=== PATIENT | female | born 1990 | race Caucasian/White ===

== ENCOUNTER 2021-10-18 22:20 | Inpatient (IN) | payer BC ==
--- NOTE | 2021-10-19 01:10 | PCM.PREANE ---
Preanesthetic Assessment - Procedure Proposed Procedure: Epidural - Anesthesia/Transfusion/Family Hx Anesthesia History: Prior Anesthesia Without Reaction Family History of Anesthesia Reaction: No Transfusion History: No Prior Transfusion(s) Intubation History: Unknown - Review of Systems General: No Symptoms Pulmonary: No Symptoms Cardiovascular: No Symptoms Gastrointestinal: No Symptoms (GERD), Constipation Neurological: No Symptoms Other: Reports: None, Diabetes (Gestational DM) - Physical Assessment NPO Status Date: 10/18/21 NPO Status Time: 13:00 Vital Signs: Last Vital Signs Temp 36.8 C 10/18/21 22:45 Pulse 81 10/18/21 22:45 Resp 14 10/18/21 22:45 BP 141/75 H 10/18/21 22:45 Pulse Ox 100 10/18/21 22:45 Height: 1.6 m Weight: 110.223 kg ASA Class: 2 Mental Status: Alert & Oriented x3 Airway Class: Mallampati = 2 Dentition: Reports: Normal Dentition (nasal piercing noted), Caries Thyro-Mental Finger Breadths: 3 Mouth Opening Finger Breadths: 3 ROM/Head Extension: Full Lungs: Clear to Auscultation, Normal Respiratory Effort Cardiovascular: Regular Rate, Regular Rhythm, No Murmurs - Allergies Allergies/Adverse Reactions: Allergies Allergy/AdvReac Type Severity Reaction Status Date / Time bupropion [From Wellbutrin] Allergy Hives Verified 10/19/21 00:39 - Anesthesia Plan Pre-Op Medication Ordered: None - Acknowledgements Anesthesia Type Planned: Epidural Pt an Appropriate Candidate for the Planned Anesthesia: Yes Alternatives and Risks of Anesthesia Discussed w Pt/Guardian: Yes Pt/Guardian Understands and Agrees with Anesthesia Plan: Yes
[2021-10-19] MEDS ORDERED: ePHEDrine 50 MG/ML SDV IVPUSH PRN (01:13)
[2021-10-19] MEDS ORDERED: Ondansetron 4 MG/2 ML SDV IVPUSH PRN (01:13)
[2021-10-19] MEDS ORDERED: fentaNYL 100 MCG/2 ML SDV EPIDUR PRN (01:13)
[2021-10-19] MEDS ORDERED: Bupivacaine/fentaNYL/NS 100 ML Bag EPIDUR SCH (01:15)
[2021-10-19] MEDS ORDERED: Sodium Chloride 0.9% 10 ML Syringe FLUSH PRN (01:24)
[2021-10-19] MEDS ORDERED: Lidocaine 1% 50 ML MDV INJECT ONE (01:24)
[2021-10-19] MEDS ORDERED: Nalbuphine 10 MG/1 ML Vial IVPUSH PRN (01:24)
[2021-10-19] MEDS ORDERED: Oxytocin/Lactated Ringers 10 UNIT/1,000 ML BAG IV SCH (01:30)
[2021-10-19] MEDS: Lactated Ringers 1,000 ML IV SCH ×2 (05:04→06:03)
--- NOTE | 2021-10-19 06:33 | PCM.LDHP ---
L&D History of Present Illness - General Date of Service: 10/19/21 Admit Problem/Dx: Patient Status Order with Admit Dx/Problem 10/18/21 22:26 Patient Status [ADT] Routine 10/19/21 01:25 Patient Status [ADT] Routine Admission Diagnosis/Problem Admission Diagnosis/Problem Source of Information: Patient History Limitations: Reports: No Limitations - History of Present Illness Introduction:: Patient is a 31 y/o at 39 3/7 wks currently who presented last night in early labor. Has progressed from 3 cm to 6 cm. Currently comfortable with an epidural in place. Pain Score: 10 - Related Data Allergies/Adverse Reactions: Allergies Allergy/AdvReac Type Severity Reaction Status Date / Time avocado Allergy Nausea and Verified 10/19/21 02:43 Vomiting banana Allergy Nausea and Verified 10/19/21 02:43 Vomiting bupropion [From Wellbutrin] Allergy Hives Verified 10/19/21 00:39 Home Medications: Home Meds Pnv No.95/Ferrous Fum/Folic AC [ Vitamin Tablet] 1 tab PO DAILY 10/19/21 [History] Past Medical History [facility]IC[facility] History: Reports: , Spontaneous : 4 Para: 2 LMP (Approximate): - Past Surgical History HEENT Surgical History: Reports: Oral Surgery, Tonsillectomy Social & Family History - Family History Family Medical History: Unobtainable - Tobacco Use Tobacco Use Status *Q: Never Tobacco User - Caffeine Use Caffeine Use: Reports: None - Alcohol Use Alcohol Use History: No - Recreational Drug Use Recreational Drug Use: No H&P Review of Systems - Review of Systems: Review Of Systems: See Below General: Reports: No Symptoms Pulmonary: Reports: No Symptoms Cardiovascular: Reports: No Symptoms Gastrointestinal: Reports: No Symptoms Genitourinary: Reports: No Symptoms Musculoskeletal: Reports: No Symptoms Psychiatric: Reports: No Symptoms L&D Exam - Exam Exam: See Below - Vital Signs Vital Signs: Last Vital Signs Temp 36.8 C 10/19/21 02:35 Pulse 81 10/19/21 02:35 Resp 16 10/19/21 02:35 BP 141/75 H 10/19/21 02:35 Pulse Ox 98 10/19/21 02:35 Weight: 110.223 kg - OB Specific Contraction Intensity: Moderate to Strong Movement: Active Heart Tones: Present Heart Tones per Min: 150 Heart Rate (FHR) Variability: Moderate (6-25 bpm) Presentation: Vertex - Duncan Score Duncan Score Cervix Position: Midposition Duncan Score Consistency: Soft Duncan Score Effacement: >80% Duncan Score Dilation: > 5 cm Duncan Score Infant's Station: -1 ,0 Duncan Score Total: 11 - Exam General: Alert, Oriented, Cooperative Lungs: Clear to Auscultation, Normal Respiratory Effort Cardiovascular: Regular Rate, Regular Rhythm GI/Abdominal Exam: Soft, Non-Tender Genitourinary: Normal external exam Extremities: Normal Inspection Skin: Warm, Dry, Intact - Patient Data Lab Results Last 24 hrs: Laboratory Results - last 24 hr 10/19/21 10/19/21 10/19/21 Range/Units 01:28 01:52 01:52 WBC 12.78 H (3.98-10.04) K/mm3 RBC 4.37 (3.98-5.22) M/mm3 Hgb 13.2 (11.2-15.7) gm/dl Hct 39.3 (34.1-44.9) % MCV 89.9 (79.4-94.8) fl MCH 30.2 (25.6-32.2) pg MCHC 33.6 (32.2-35.5) g/dl RDW Std Deviation 44.5 (36.4-46.3) fL Plt Count 234 (182-369) K/mm3 MPV 9.5 (9.4-12.3) fl Neut % (Auto) 69.8 (34.0-71.1) % Lymph % (Auto) 21.0 (19.3-51.7) % Moore % (Auto) 7.3 (4.7-12.5) % Eos % (Auto) 1.1 (0.7-5.8) Baso % (Auto) 0.2 (0.1-1.2) % Neut # (Auto) 8.92 H (1.56-6.13) K/mm3 Lymph # (Auto) 2.68 (1.18-3.74) K/mm3 Moore # (Auto) 0.93 H (0.24-0.36) K/mm3 Eos # (Auto) 0.14 (0.04-0.36) K/mm3 Baso # (Auto) 0.03 (0.01-0.08) K/mm3 POC Glucose (70-99) mg/dL SARS-CoV-2 RNA (MARIA EUGENIA) Negative (NEGATIVE) Blood Type O POSITIVE Gel Antibody Screen Negative 10/19/21 10/19/21 Range/Units 02:07 04:04 WBC (3.98-10.04) K/mm3 RBC (3.98-5.22) M/mm3 Hgb (11.2-15.7) gm/dl Hct (34.1-44.9) % MCV (79.4-94.8) fl MCH (25.6-32.2) pg MCHC (32.2-35.5) g/dl RDW Std Deviation (36.4-46.3) fL Plt Count (182-369) K/mm3 MPV (9.4-12.3) fl Neut % (Auto) (34.0-71.1) % Lymph % (Auto) (19.3-51.7) % Moore % (Auto) (4.7-12.5) % Eos % (Auto) (0.7-5.8) Baso % (Auto) (0.1-1.2) % Neut # (Auto) (1.56-6.13) K/mm3 Lymph # (Auto) (1.18-3.74) K/mm3 Moore # (Auto) (0.24-0.36) K/mm3 Eos # (Auto) (0.04-0.36) K/mm3 Baso # (Auto) (0.01-0.08) K/mm3 POC Glucose 90 137 H (70-99) mg/dL SARS-CoV-2 RNA (MARIA EUGENIA) (NEGATIVE) Blood Type Gel Antibody Screen Result Diagrams: 10/19/21 01:52 - Problem List (1) 39 weeks gestation of SNOMED Code(s): 99421521 ICD Code: Z3A.39 - 39 WEEKS GESTATION OF Status: Acute Current Visit: Yes (2) Gestational diabetes SNOMED Code(s): 79163125 ICD Code: O24.419 - GESTATIONAL DIABETES MELLITUS IN , UNSP CONTROL Status: Acute Current Visit: Yes Qualifiers: Gestational diabetes mellitus control: diet-controlled Trimester: third tr imester Qualified Code(s): O24.410 - Gestational diabetes mellitus in pre gnancy, diet controlled (3) Normal labor SNOMED Code(s): 95003774 ICD Code: O80 - ENCOUNTER FOR FULL-TERM UNCOMPLICATED DELIVERY; Z37.9 - OUTCOME OF DELIVERY, UNSPECIFIED Status: Acute Current Visit: Yes Problem List Initiated/Reviewed/Updated: Yes Orders Last 24hrs: Active Orders 24 hr Category Date Time Status Patient Status [ADT] Routine ADT 10/18/21 22:26 Active Patient Status [ADT] Routine ADT 10/19/21 01:25 Active Activity as Tolerated [RC] PFP Care 10/19/21 01:24 Active Blood Glucose Check, Bedside [RC] Q2HR Care 10/19/21 01:33 Active Communication Order [RC] ASDIRECTED Care 10/19/21 01:24 Active Heart Tones [RC] ASDIRECTED Care 10/19/21 01:25 Active Non Stress Test [RC] PER UNIT ROUTINE Care 10/18/21 22:26 Active Non Stress Test [RC] PER UNIT ROUTINE Care 10/19/21 01:24 Active Notify Provider [RC] ASDIRECTED Care 10/19/21 01:13 Active Notify Provider [RC] PFP Care 10/19/21 01:24 Active Notify Provider [RC] PRN Care 10/19/21 01:24 Active Oxygen Therapy [RC] ASDIRECTED Care 10/19/21 01:13 Active Peripheral IV Care [RC] Q4HR Care 10/19/21 01:25 Active Pulse Oximetry [RC] ASDIRECTED Care 10/19/21 01:13 Active Vital Signs [RC] PER UNIT ROUTINE Care 10/18/21 22:26 Active Vital Signs [RC] PER UNIT ROUTINE Care 10/19/21 01:24 Active Regular Diet [DIET] Diet 10/18/21 Breakfast Active PATIENT RETYPE [BBK] Routine Lab 10/19/21 02:52 Ordered RAPID PLASMA REAGIN,RPR [CHEM] Routine Lab 10/19/21 01:52 Received Bupivacaine/fentaNYL/NS [fentaNYL/Bupivacaine/NS 2 MCG- Med 10/19/21 01:15 Active 0.125% 100 ML] 100 ml EPIDUR ASDIRECTED Lactated Ringers [Ringers, Lactated] 1,000 ml Med 10/19/21 01:30 Active IV ASDIRECTED Nalbuphine [Nubain] Med 10/19/21 01:24 Active 10 mg IVPUSH Q2H PRN Ondansetron [Zofran] Med 10/19/21 01:13 Active 4 mg IVPUSH ONETIME PRN Oxytocin/Lactated Ringers [Pitocin in LR 10 Units/1,000 Med 10/19/21 01:30 Active ML] 10 unit in 1,000 ml IV .CONTINUOUS Phenylephrine HCl In 0.9% NaCl [Phenylephrine 1 MG/10 Med 10/19/21 01:13 Active ML-NS] 0.1 mg IVPUSH Q10M PRN Sodium Chloride 0.9% [Saline Flush] Med 10/19/21 01:24 Active 10 ml FLUSH ASDIRECTED PRN ePHEDrine [ePHEDrine sulfate] Med 10/19/21 01:13 Active 5 mg IVPUSH ASDIRECTED PRN fentaNYL [Sublimaze] Med 10/19/21 01:13 Active 100 mcg EPIDUR Q3H PRN Electronic Heart Tones Ext w TOCO [WOMSER] Oth 10/19/21 01:24 Ordered Routine Electronic Heart Tones Internal [WOMSER] Per Unit Oth 10/19/21 01:24 Ordered Routine Peripheral IV Insertion Adult [OM.PC] Routine Oth 10/19/21 01:24 Ordered Resuscitation Status Routine Resus Stat 10/18/21 22:26 Ordered Medication Orders Ephedrine Sulfate (Ephedrine 50 Mg/Ml Sdv) 5 mg IVPUSH ASDIRECTED PRN PRN Reason: Hypotension Fentanyl (Fentanyl 100 Mcg/2 Ml Sdv) 100 mcg EPIDUR Q3H PRN PRN Reason: Pain Last Admin: 10/19/21 05:03 Dose: 100 mcg Documented by: FÁTIMA Fentanyl/Bupivacaine HCl (Bupivacaine/Fentanyl/Ns 100 Ml Bag) 100 ml EPIDUR ASD IRECTED COUNTS INCLUDE 234 BEDS AT THE [facility] Last Admin: 10/19/21 05:02 Dose: 100 ml Documented by: FÁTIMA Lactated Ringer's (Ringers, Lactated) 1,000 mls @ 100 mls/hr IV ASDIRECTED SIMIN Last Admin: 10/19/21 06:03 Dose: 999 mls/hr Documented by: Infusion: 10/19/21 06:03 Dose: 999 mls/hr Documented by: Admin: 10/19/21 05:04 Dose: 100 mls/hr Documented by: FÁTIMA Oxytocin/Lactated Ringer's (Pitocin In Lr 10 Units/1,000 Ml) 10 unit in 1,000 mls @ 500 mls/hr IV .CONTINUOUS SIMIN Miscellaneous Medication (Phenylephrine Hcl In 0.9% Nacl 1 Mg/10 Ml Syringe) 0.1 mg IVPUSH Q10M PRN PRN Reason: Hypotension Nalbuphine HCl (Nalbuphine 10 Mg/1 Ml Vial) 10 mg IVPUSH Q2H PRN PRN Reason: Pain Ondansetron HCl (Ondansetron 4 Mg/2 Ml Sdv) 4 mg IVPUSH ONETIME PRN PRN Reason: Nausea/Vomiting Sodium Chloride (Sodium Chloride 0.9% 10 Ml Syringe) 10 ml FLUSH ASDIRECTED PRN PRN Reason: Keep Vein Open Assessment/Plan Comment:: * Labs done on admission * GBS negative * Has progressed well from 3 cm to currently 6 cm. AROM done * Epidural in place * Anticipate
[2021-10-19] MEDS ORDERED: Bupivacaine 0.25% 10 ML SDV ONE (08:00)
--- NOTE | 2021-10-19 08:44 | PCM.DEL ---
L & D Note - General Info Date of Service: 10/19/21 - Delivery Note Labor: Spontaneous Delivery Outcome: Livebirth Delivery Method: Spontaneous Vaginal Delivery-Single Delivery Mode: Spontaneous Presentation: Left Occiput Anterior (MANN) Nuchal Cord: None Anesthesia Type: Epidural Amniotic Fluid Description: Clear Episiotomy Type: None Laceration: 2nd Degree Suture type: Vicryl Suture size: 2-0 Placenta: Intact, Spontaneous Cord: 3 Vessels Estimated Blood Loss: 100 Resuscitation Needed: Yes : Bulb Syringe, Stimulated, Warmed, [place] Used, Warmer Used Delivery Comments (Free Text/Narrative):: Patient found to be complete and began pushing. With maternal pushing effort head delivered from an MANN presentation. No nuchal cord present. With gentle downward traction shoulders and body delivered. Infant placed on maternal abdomen. Cord clamped and cut. Cord blood obtained. Placenta allowed time to separate and expelled intact. Inspection of perineum showed a small 2nd degree laceration. This was repaired with an interrupted 2-0 Vicryl - General Info Date of Service: 10/19/21 - Patient Data Vitals - Most Recent: Last Vital Signs Temp 36.8 C 10/19/21 02:35 Pulse 81 10/19/21 02:35 Resp 16 10/19/21 02:35 BP 141/75 H 10/19/21 02:35 Pulse Ox 98 10/19/21 02:35 Weight - Most Recent: 110.223 kg Med Orders - Current: - Exam Urinary Catheter Total Time: 0Days 0Hours - Problem List & Annotations (1) 39 weeks gestation of SNOMED Code(s): 17862029 Code(s): Z3A.39 - 39 WEEKS GESTATION OF Status: Acute Current Visit: Yes (2) Gestational diabetes SNOMED Code(s): 88670159 Code(s): O24.419 - GESTATIONAL DIABETES MELLITUS IN , UNSP CONTROL Status: Acute Current Visit: Yes Qualifiers: Gestational diabetes mellitus control: diet-controlled Trimester: third trimester Qualified Code(s): O24.410 - Gestational diabetes mellitus in pre gnancy, diet controlled (3) Normal labor SNOMED Code(s): 04841579 Code(s): O80 - ENCOUNTER FOR FULL-TERM UNCOMPLICATED DELIVERY; Z37.9 - OUTCOME OF DELIVERY, UNSPECIFIED Status: Acute Current Visit: Yes (4) Vaginal delivery SNOMED Code(s): 144475513 Code(s): O80 - ENCOUNTER FOR FULL-TERM UNCOMPLICATED DELIVERY Status: Acute Current Visit: Yes - Problem List Review Problem List Initiated/Reviewed/Updated: Yes - My Orders Last 24 Hours: My Active Orders 10/19/21 01:24 Activity as Tolerated [RC] PFP Communication Order [RC] ASDIRECTED Non Stress Test [RC] PER UNIT ROUTINE Notify Provider [RC] PFP Notify Provider [RC] PRN Vital Signs [RC] PER UNIT ROUTINE Nalbuphine [Nubain] 10 mg IVPUSH Q2H PRN Sodium Chloride 0.9% [Saline Flush] 10 ml FLUSH ASDIRECTED PRN Electronic Heart Tones Ext w TOCO [WOMSER] Routine Electronic Heart Tones Internal [WOMSER] Per Unit Routine Peripheral IV Insertion Adult [OM.PC] Routine 10/19/21 01:25 Patient Status [ADT] Routine Heart Tones [RC] ASDIRECTED Peripheral IV Care [RC] Q4HR 10/19/21 01:30 Lactated Ringers [Ringers, Lactated] 1,000 ml IV ASDIRECTED Oxytocin/Lactated Ringers [Pitocin in LR 10 Units/1,000 ML] 10 unit in 1,000 ml IV .CONTINUOUS 10/19/21 01:33 Blood Glucose Check, Bedside [RC] Q2HR 10/19/21 01:52 RAPID PLASMA REAGIN,RPR [CHEM] Routine - Assessment Assessment:: PPD#0 - Plan Plan:: * Routine cares * Breast feeding * Blood sugar in AM * Discharge home in 1-2 days
[2021-10-19] MEDS ORDERED: Benzocaine/Menthol 20%-0.5% Spray 78 GM Cannister TOP PRN (09:31)
[2021-10-19] MEDS ORDERED: Witch Hazel Medicated Pads 40/Jar TOP PRN (09:31)
[2021-10-19] MEDS ORDERED: Acetaminophen 325 MG Tab PO PRN (09:31)
[2021-10-19] MEDS ORDERED: Docusate Sodium 100 MG Cap PO PRN (09:31)
[2021-10-19] MEDS: Ibuprofen 600 MG Tab PO PRN (17:01)
[2021-10-20] MEDS: Ibuprofen 600 MG Tab PO PRN (05:25)
--- NOTE | 2021-10-20 06:09 | PCM.PNPP ---
- General Info Date of Service: 10/20/21 Functional Status: Reports: Pain Controlled, Tolerating Diet, Ambulating, Urinating - Review of Systems General: Reports: No Symptoms Pulmonary: Reports: No Symptoms Cardiovascular: Reports: No Symptoms Gastrointestinal: Reports: No Symptoms Genitourinary: Reports: No Symptoms Musculoskeletal: Reports: No Symptoms Neurological: Reports: No Symptoms Psychiatric: Reports: No Symptoms - General Info Date of Service: 10/20/21 - Patient Data Vital Signs - Most Recent: Last Vital Signs Temp 36.6 C 10/20/21 04:00 Pulse 77 10/20/21 04:00 Resp 14 10/20/21 04:00 BP 131/56 L 10/20/21 04:00 Pulse Ox 96 10/20/21 04:00 Weight - Most Recent: 110.223 kg I&O - Last 24 Hours: Intake & Output 10/19/21 10/19/21 10/20/21 14:59 22:59 06:59 Intake Total 2400 Output Total 400 Balance 2000 Lab Results - Last 24 Hours: Laboratory Results - last 24 hr 10/19/21 10/19/21 10/20/21 Range/Units 01:52 06:25 05:20 POC Glucose 120 H 88 (70-99) mg/dL RPR Non-reactive (NONREACTIVE) Med Orders - Current: Current Medications Acetaminophen (Acetaminophen 325 Mg Tab) 650 mg PO Q4H PRN PRN Reason: mild pain or fever Benzocaine/Menthol (Benzocaine/Menthol 20%-0.5% [place] 78 Gm Cannister) 0 gm TOP ASDIRECTED PRN PRN Reason: Perineal Comfort Measure Last Admin: 10/19/21 10:38 Dose: 1 canister Documented by: Docusate Sodium (Docusate Sodium 100 Mg Cap) 100 mg PO BID PRN PRN Reason: Constipation Ibuprofen (Ibuprofen 600 Mg Tab) 600 mg PO Q6H PRN PRN Reason: Mild pain or fever Last Admin: 10/20/21 05:25 Dose: 600 mg Documented by: Ibeth Breaux (Ibeth Breaux Medicated Pads 40/Jar) 1 pad TOP ASDIRECTED PRN PRN Reason: Perineal Comfort Measure Last Admin: 10/19/21 10:38 Dose: 1 container Documented by: Discontinued Medications Bupivacaine HCl (Bupivacaine 0.25% 10 Ml Sdv) 10 ml .ROUTE .STK-MED ONE Stop: 10/19/21 08:01 Ephedrine Sulfate (Ephedrine 50 Mg/Ml Sdv) 5 mg IVPUSH ASDIRECTED PRN PRN Reason: Hypotension Fentanyl (Fentanyl 100 Mcg/2 Ml Sdv) 100 mcg EPIDUR Q3H PRN PRN Reason: Pain Last Admin: 10/19/21 05:03 Dose: 100 mcg Documented by: Fentanyl/Bupivacaine HCl (Bupivacaine/Fentanyl/Ns 100 Ml Bag) 100 ml EPIDUR ASDIRECTED [facility] Last Admin: 10/19/21 05:02 Dose: 100 ml Documented by: Lactated Ringer's (Ringers, Lactated) 1,000 mls @ 100 mls/hr IV ASDIRECTED [facility] Last Admin: 10/19/21 06:03 Dose: 999 mls/hr Documented by: Oxytocin/Lactated Ringer's (Pitocin In Lr 10 Units/1,000 Ml) 10 unit in 1,000 mls @ 500 mls/hr IV .CONTINUOUS [facility] Last Admin: 10/19/21 08:35 Dose: 500 mls/hr Documented by: Lidocaine HCl (Lidocaine 1% 50 Ml Mdv) 50 ml INJECT ONETIME ONE Stop: 10/19/21 01:25 Last Admin: 10/19/21 09:41 Dose: Not Given Documented by: Miscellaneous Medication (Phenylephrine Hcl In 0.9% Nacl 1 Mg/10 Ml Syringe) 0.1 mg IVPUSH Q10M PRN PRN Reason: Hypotension Nalbuphine HCl (Nalbuphine 10 Mg/1 Ml Vial) 10 mg IVPUSH Q2H PRN PRN Reason: Pain Ondansetron HCl (Ondansetron 4 Mg/2 Ml Sdv) 4 mg IVPUSH ONETIME PRN PRN Reason: Nausea/Vomiting Sodium Chloride (Sodium Chloride 0.9% 10 Ml Syringe) 10 ml FLUSH ASDIRECTED PRN PRN Reason: Keep Vein Open - Interaction Disposition, : Salters in Room with Family Interaction: Holding Infant Infant Feeding: Attempted ; Nursed Fair/Poor, Bottle Fed Support Person: - Recovery Exam Fundal Tone: Firm Fundal Level: 1 Fingerbreadths Below Umbilicus Fundal Placement: Midline Lochia Amount: Scant, Small Lochia Color: Rubra/Red Perineum Description: Other (see below) Other Perinuem Description: Second degree laceration with repair Episiotomy/Laceration: Approximated Bladder Status: Voiding Urinary Elimination: Voided - Exam General: Alert, Oriented, Cooperative GI/Abdominal Exam: Soft, Non-Tender - Problem List & Annotations (1) 39 weeks gestation of SNOMED Code(s): 90874269 Code(s): Z3A.39 - 39 WEEKS GESTATION OF Status: Acute Current Visit: Yes (2) Gestational diabetes SNOMED Code(s): 42512844 Code(s): O24.419 - GESTATIONAL DIABETES MELLITUS IN , UNSP CONTROL Status: Acute Current Visit: Yes Qualifiers: Gestational diabetes mellitus control: diet-controlled Trimester: third trimester Qualified Code(s): O24.410 - Gestational diabetes mellitus in , diet controlled (3) Normal labor SNOMED Code(s): 53896124 Code(s): O80 - ENCOUNTER FOR FULL-TERM UNCOMPLICATED DELIVERY; Z37.9 - OUTCOME OF DELIVERY, UNSPECIFIED Status: Acute Current Visit: Yes (4) Vaginal delivery SNOMED Code(s): 214608860 Code(s): O80 - ENCOUNTER FOR FULL-TERM UNCOMPLICATED DELIVERY Status: Acute Current Visit: Yes - Problem List Review Problem List Initiated/Reviewed/Updated: Yes - My Orders Last 24 Hours: My Active Orders 10/19/21 09:31 Acetaminophen [TylenoL] 650 mg PO Q4H PRN Benzocaine/Menthol [Dermoplast Pain Relief 20%-0.5% [place]] See Dose Instructions TOP ASDIRECTED PRN Docusate Sodium [Colace] 100 mg PO BID PRN Ibuprofen [Motrin] 600 mg PO Q6H PRN witch Dheeraj [Tucks] 1 pad TOP ASDIRECTED PRN Heat Therapy [OM.PC] PRN 10/19/21 09:31 Activity as Tolerated [RC] PER UNIT ROUTINE Vital Signs [RC] 03,,, Assess Lochia [WOMSER] Per Unit Routine Assess Uterine Involution [WOMSER] Per Unit Routine Breast Pump [WOMSER] Per Unit Routine Ice Therapy [OM.PC] Per Unit Routine Perineal Care [OM.PC] Per Unit Routine Peripheral IV Discontinue [OM.PC] Routine Sitz Bath [OM.PC] Per Unit Routine 10/19/21 Lunch Regular Diet [DIET] 10/20/21 05:00 Blood Glucose Check, Bedside [RC] ONETIME 10/20/21 06:08 Ready for Discharge [RC] PER UNIT ROUTINE 10/20/21 09:31 Heat Therapy [OM.PC] PRN - Assessment Assessment:: PPD#1 - Plan Plan:: * Routine cares * Breast feeding * Blood sugar this AM appropriate at 88 * Discharge home today
--- NOTE | 2021-10-20 06:09 | PCM.DCSUM1 ---
Discharge Summary - Discharge Data Discharge Date: 10/20/21 Discharge Disposition: Home, Self-Care 01 Condition: Good - Referral to Home Health Primary Care Physician: Marta Rodgers MD - Discharge Diagnosis/Problem(s) (1) 39 weeks gestation of SNOMED Code(s): 96032400 ICD Code: Z3A.39 - 39 WEEKS GESTATION OF Status: Acute Current Visit: Yes (2) Gestational diabetes SNOMED Code(s): 21171651 ICD Code: O24.419 - GESTATIONAL DIABETES MELLITUS IN , UNSP CONTROL Status: Acute Current Visit: Yes Qualifiers: Gestational diabetes mellitus control: diet-controlled Trimester: third trimester Qualified Code(s): O24.410 - Gestational diabetes mellitus in pr egnancy, diet controlled (3) Normal labor SNOMED Code(s): 37026689 ICD Code: O80 - ENCOUNTER FOR FULL-TERM UNCOMPLICATED DELIVERY; Z37.9 - OUTCOME OF DELIVERY, UNSPECIFIED Status: Acute Current Visit: Yes (4) Vaginal delivery SNOMED Code(s): 917831283 ICD Code: O80 - ENCOUNTER FOR FULL-TERM UNCOMPLICATED DELIVERY Status: Acute Current Visit: Yes - Patient Summary/Data Complications: None Consults: None Recommended Follow-up Testing/Procedures: Follow up in 3 weeks for check Hospital Course: 31 y/o presented at 39 2/7 wks who presented in labor. Progressed well without the need for augmentation. Underwent an uncomplicated . See delivery note. did well. Was discharged home on PPD#1 - Patient Instructions Diet: Regular Diet as Tolerated Activity: As Tolerated Activity, Other: Pelvic rest for 6 weeks Driving: May Drive Today Showering/Bathing: May Shower Showering/Bathing, Other: May Bathe Notify Provider of: Fever, Increased Pain, Swelling and Redness, Drainage, Nausea and/or Vomiting - Discharge Plan *PRESCRIPTION DRUG MONITORING PROGRAM REVIEWED*: No *COPY OF PRESCRIPTION DRUG MONITORING REPORT IN PATIENT [place]: No Home Medications: Home Meds Acetaminophen [Tylenol] 650 mg PO Q4H PRN tablet 10/19/21 [Rx] Docusate Sodium [Colace] 100 mg PO BID PRN cap 10/19/21 [Rx] Ibuprofen [Motrin] 600 mg PO Q6H PRN tablet 10/19/21 [Rx] Pnv No.95/Ferrous Fum/Folic AC [ Vitamin Tablet] 1 tab PO DAILY 10/19/21 [History] Referrals: Marta Rodgers MD [Primary Care Provider] - (3 weeks for check ) - Discharge Summary/Plan Comment DC Time >30 min.: No Total # of Minutes for Discharge Time: 15 - Patient Data Vitals - Most Recent: Last Vital Signs Temp 36.6 C 10/20/21 04:00 Pulse 77 10/20/21 04:00 Resp 14 10/20/21 04:00 BP 131/56 L 10/20/21 04:00 Pulse Ox 96 10/20/21 04:00 Weight - Most Recent: 110.223 kg I&O - Last 24 hours: Intake & Output 10/19/21 10/19/21 10/20/21 14:59 22:59 06:59 Intake Total 2400 Output Total 400 Balance 2000 Lab Results - Last 24 hrs: Laboratory Results - last 24 hr 10/19/21 10/19/21 10/20/21 Range/Units 01:52 06:25 05:20 POC Glucose 120 H 88 (70-99) mg/dL RPR Non-reactive (NONREACTIVE) Med Orders - Current: Current Medications Acetaminophen (Acetaminophen 325 Mg Tab) 650 mg PO Q4H PRN PRN Reason: mild pain or fever Benzocaine/Menthol (Benzocaine/Menthol 20%-0.5% [place] 78 Gm Cannister) 0 gm TOP ASDIRECTED PRN PRN Reason: Perineal Comfort Measure Last Admin: 10/19/21 10:38 Dose: 1 canister Documented by: Docusate Sodium (Docusate Sodium 100 Mg Cap) 100 mg PO BID PRN PRN Reason: Constipation Ibuprofen (Ibuprofen 600 Mg Tab) 600 mg PO Q6H PRN PRN Reason: Mild pain or fever Last Admin: 10/20/21 05:25 Dose: 600 mg Documented by: Ibeth Breaux (Ibeth Breaux Medicated Pads 40/Jar) 1 pad TOP ASDIRECTED PRN PRN Reason: Perineal Comfort Measure Last Admin: 10/19/21 10:38 Dose: 1 container Documented by: Discontinued Medications Bupivacaine HCl (Bupivacaine 0.25% 10 Ml Sdv) 10 ml .ROUTE .STK-MED ONE Stop: 10/19/21 08:01 Ephedrine Sulfate (Ephedrine 50 Mg/Ml Sdv) 5 mg IVPUSH ASDIRECTED PRN PRN Reason: Hypotension Fentanyl (Fentanyl 100 Mcg/2 Ml Sdv) 100 mcg EPIDUR Q3H PRN PRN Reason: Pain Last Admin: 10/19/21 05:03 Dose: 100 mcg Documented by: Fentanyl/Bupivacaine HCl (Bupivacaine/Fentanyl/Ns 100 Ml Bag) 100 ml EPIDUR ASDIRECTED [facility] Last Admin: 10/19/21 05:02 Dose: 100 ml Documented by: Lactated Ringer's (Ringers, Lactated) 1,000 mls @ 100 mls/hr IV ASDIRECTED [facility] Last Admin: 10/19/21 06:03 Dose: 999 mls/hr Documented by: Oxytocin/Lactated Ringer's (Pitocin In Lr 10 Units/1,000 Ml) 10 unit in 1,000 mls @ 500 mls/hr IV .CONTINUOUS [facility] Last Admin: 10/19/21 08:35 Dose: 500 mls/hr Documented by: Lidocaine HCl (Lidocaine 1% 50 Ml Mdv) 50 ml INJECT ONETIME ONE Stop: 10/19/21 01:25 Last Admin: 10/19/21 09:41 Dose: Not Given Documented by: Miscellaneous Medication (Phenylephrine Hcl In 0.9% Nacl 1 Mg/10 Ml Syringe) 0.1 mg IVPUSH Q10M PRN PRN Reason: Hypotension Nalbuphine HCl (Nalbuphine 10 Mg/1 Ml Vial) 10 mg IVPUSH Q2H PRN PRN Reason: Pain Ondansetron HCl (Ondansetron 4 Mg/2 Ml Sdv) 4 mg IVPUSH ONETIME PRN PRN Reason: Nausea/Vomiting Sodium Chloride (Sodium Chloride 0.9% 10 Ml Syringe) 10 ml FLUSH ASDIRECTED PRN PRN Reason: Keep Vein Open
--- NOTE | 2021-10-20 07:54 | PCM48HPAN ---
Post Anesthesia Note - EVALUATION WITHIN 48HRS OF ANESTHETIC Vital Signs in Normal Range: Yes Patient Participated in Evaluation: Yes Respiratory Function Stable: Yes Airway Patent: Yes Cardiovascular Function Stable: Yes Hydration Status Stable: Yes Pain Control Satisfactory: Yes Nausea and Vomiting Control Satisfactory: Yes Mental Status Recovered: Yes Vital Signs: Last Vital Signs Temp 36.6 C 10/20/21 04:00 Pulse 77 10/20/21 04:00 Resp 14 10/20/21 04:00 BP 131/56 L 10/20/21 04:00 Pulse Ox 96 10/20/21 04:00
== END 2021-10-20 11:55 | disposition home or self-care (01) | DRG 560 ==
LOC: JD.OBCHECK 22:20 → JD.OB 22:21 → JD.OBCHECK 10-19 01:25 → JD.OB 10-19 01:25 → OBSVTOIN 10-19 08:34 → JD.OB 10-19 08:59
PROVIDERS: ADMIT Obstetrics & Gynecology; ATTEND Obstetrics & Gynecology
PROC: 10E0XZZ Delivery of Products of Conception, External Approach (ICD-10-PCS; principal; 2021-10-19)
PROC: 10907ZC Drainage of Amniotic Fluid, Therapeutic from Products of Conception, Via Natural or Artificial Opening (ICD-10-PCS; 2021-10-19)
PROC: 0KQM0ZZ Repair Perineum Muscle, Open Approach (ICD-10-PCS; 2021-10-19)
PROC: 3E0R3BZ Introduction of Anesthetic Agent into Spinal Canal, Percutaneous Approach (ICD-10-PCS; 2021-10-19)
PROC: 00HU33Z Insertion of Infusion Device into Spinal Canal, Percutaneous Approach (ICD-10-PCS; 2021-10-19)
DX: O24.420 Gestational diabetes mellitus in childbirth, diet controlled (principal); Z37.0 Single live birth; O70.1 Second degree perineal laceration during delivery; Z20.822 Contact with and (suspected) exposure to COVID-19; Z3A.39 39 weeks gestation of pregnancy; Z88.8 Allergy status to other drugs, medicaments and biological substances
CPT/HCPCS: 01967; 36415; 51702; 59020; 59409; 82947; 85025; 86592; 86850; 86900; 86901; A9270-GY; J2590; J3010; J3490; J7120; U0002